=== PATIENT | male | born 1960 | race Caucasian/White ===

== ENCOUNTER 2016-08-02 02:55 | Emergency (ER) | payer OTHER ==
[2016-08-02] MEDS ORDERED: BACITRACIN ZINC OINTMENT 15 GM TP ONE (04:17)
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
[2016-08-02 06:27] VITALS: BP 126/82
== END 2016-08-02 06:25 | disposition home or self-care (01) ==
LOC: ER 02:55
DX: S43.005A Unspecified dislocation of left shoulder joint, initial encounter (principal); S60.222A Contusion of left hand, initial encounter; S60.415A Abrasion of left ring finger, initial encounter; S80.812A Abrasion, left lower leg, initial encounter; V23.4XXA Motorcycle driver injured in collision with car, pick-up truck or van in traffic accident, initial encounter; Y35.893A Legal intervention involving other specified means, suspect injured, initial encounter; M79.642 Pain in left hand; M79.672 Pain in left foot; Z88.7 Allergy status to serum and vaccine
CPT/HCPCS: 99283; 73630; 73130; 73030; J3490

== ENCOUNTER 2017-02-28 05:44 | Emergency (ER) | payer SELFPAY ==
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
[2017-02-28] MEDS ORDERED: FENTANYL CITRATE INJ/PF 100 MCG/2 ML AMPUL IV ONE (06:10)
[2017-02-28] MEDS ORDERED: PROPOFOL INJ 200 MG/20 ML VIAL IV ONE (06:18)
[2017-02-28] MEDS ORDERED: NORMAL SALINE 1000 ML 1,000 ML IV ONE (06:19)
--- NOTE | 2017-02-28 06:23 | ER Document Report ---
ED General - General Chief Complaint: Shoulder Injury Stated Complaint: RIGHT SHOULDER PAIN Time Seen by Provider: 02/28/17 06:18 Mode of Arrival: Medic Notes: Patient is is a 57-year-old male who presents with complaint of falling onto his right shoulder. He has a history of recurrent left shoulder dislocations. His never dislocated his right shoulder. He feels that his right shoulder might be dislocated. No numbness or weakness into the hand. He denies any medical allergies other than tetanus. He denies being on blood thinning medications. He has no other complaints at this time. He denies any other injuries. TRAVEL OUTSIDE OF THE [place] IN LAST 30 DAYS: No - Related Data Allergies/Adverse Reactions: Tetanus Vaccines and Toxoid Allergy (Verified 08/02/16 03:10) Past Medical History - General Information source: Patient - Social History Smoking Status: Unknown if Ever Smoked Frequency of alcohol use: None Drug Abuse: None Family History: None Renal/ Medical History: Denies: Hx Peritoneal Dialysis Review of Systems - Review of Systems Notes: My Normal Review Basic REVIEW OF SYSTEMS: CONSTITUTIONAL : Denies fever, chills, or sweats. Denies recent illness. MUSCULOSKELETAL: Right shoulder pain. SKIN: Denies rash or skin lesions. HEMATOLOGIC : Denies easy bruising or bleeding. NEUROLOGICAL: Denies sensory or motor loss. ALL OTHER SYSTEMS REVIEWED AND NEGATIVE. Physical Exam - Vital signs Vitals: Temp Pulse Resp BP Pulse Ox 98.4 F 72 18 149/91 H 97 02/28/17 06:00 02/28/17 06:00 02/28/17 06:00 02/28/17 06:00 02/28/17 06:00 - Notes Notes: General Appearance: Well nourished, alert, cooperative, no acute distress, moderate obvious discomfort. Vitals: reviewed, See vital signs table. Head: no swelling or tenderness to the head Eyes: PERRL, EOMI, Conjuctiva clear Mouth: No decreasd moisture Throat: No tonsillar inflammation, No airway obstruction, No lymphadenopathy Neck: Supple, no neck tenderness Lungs: No wheezing, No rales, No rhonci, No accessory muscle use, good air exchange bilaterally. Heart: Normal rate, Regular rythm, No murmur, no rub Extremities: strength 5/5 in all extremities, good pulses in all extremities, obvious deformity to right shoulder. With any attempt of range of motion of the right shoulder. No tenderness to elbow wrist or hand., no edema. Skin: warm, dry, appropriate color, no rash Neuro: speech clear, oriented x 3, normal affect, responds appropriately to questions. Distal sensation intact. Course - Re-evaluation Re-evalutation: 02/28/17 07:14 Patient is completely awake and alert. Is answering all my questions properly. I reviewed with him follow-up plan with orthopedist. I informed him to keep the sling on but the still put his shoulder through occasional range of motion to help prevent frozen shoulder syndrome. I encouraged him return to ER immediately if he has any worsening pain, feels like his shoulder is dislocated , or if he has any further concerns. He has no numbness or tingling into his hand. He has good movement in all fingers of his right hand. I asked him again if he felt that he had any other injuries from the fall. Patient again denies any pain anywhere else other than his right shoulder. Patient will be discharged home with a taxi cab. Dictation of this chart was performed using voice recognition software; therefore, there may be some unintended grammatical errors. - Vital Signs Vital signs: Temp Pulse Resp BP Pulse Ox 98.4 F 74 16 149/87 H 98 02/28/17 06:00 02/28/17 06:45 02/28/17 07:05 02/28/17 07:05 02/28/17 07:05 Procedures - Conscious Sedation Conscious sedation Pt with a mild systemic disease.: P2. - ASA Classification. Airway Evaluation: Normal anatomy Mallampati Classification: Class 1 Used during procedure: Suction available, IV access obtained, Pulse ox on pt., manager real estate on pt. Medications administered: Diprivan Reversal agents: None I personally performed/intraservice time: Sedation, Procedure, 30 min or less - Joint Reduction/Fracture Care Right Shoulder Consent obtained: Yes Conscious sedation: Yes Pre-procedure NV exam: Yes Fracture: Closed, Other - shoulder dislocation Manipulation comment: traction and abduction Post-procedure NV exam: Yes Post-reduction x-ray: Joint reduced Reduction attempts: 1 Complications: No Discharge - Discharge Clinical Impression: Shoulder dislocation Qualifiers: Encounter type: initial encounter Laterality: right Qualified Code(s): S43.004A - Unspecified dislocation of right shoulder joint, initial encounter Condition: Good Disposition: HOME, SELF-CARE Instructions: Shoulder Dislocation ([facility]), Sling as Treatment ([facility]) Additional Instructions: Your xray showed a shoulder dislocation and a small fractur to your shoulder. Your shoulder has been put back in place. Please keep your arm in the sling until revaluated by the orthopedic doctor (Dr. Mcdermott). Please occasionally put your shoulder through range of motion to help prevent a frozen shoulder. Please return to the ER if you develop recurrence of disolcation, numbness in your hand , or if you have further concerns. Forms: Return to Work Referrals: OPAL MCDERMOTT MD [ACTIVE STAFF] - Follow up in 3-5 days (call office this morning to make a follow up appointment)
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
--- NOTE | 2017-02-28 07:12 | RADIOLOGY REPORT (SQ) ---
EXAM DESCRIPTION: SHOULDER RIGHT 2 OR MORE VIEWS COMPLETED DATE/TIME: 02/28/2017 6:57 am REASON FOR STUDY: post reduction COMPARISON: None. NUMBER OF VIEWS: Two views. TECHNIQUE: 2images acquired of the right shoulder. LIMITATIONS: As below. FINDINGS: MINERALIZATION: Normal. BONES: Interval reduction of a previous fracture -dislocation of the right glenohumeral joint in aditi omic or near anatomic position. Small residual anterior glenohumeral dislocation/subluxation cannot be excluded. Consider further evaluation with an axillary view. JOINTS: As above. VISUALIZED LUNGS AND RIBS: No pneumothorax. No rib fracture. SOFT TISSUES: No radiopaque foreign body. OTHER: No other significant finding. IMPRESSION: Interval reduction of a previous fracture -dislocation of the right glenohumeral joint i n anatomic or near anatomic position as seen on 2 limited views. Small residual anterior glenohumera l dislocation/subluxation cannot be excluded. Consider further evaluation/surveillance with an axill pauline and scapular Y views and/or CT as warranted. TECHNICAL DOCUMENTATION: JOB ID: [id number] [employer]- All Rights Reserved
[2017-02-28 07:42] VITALS: BP 148/87
== END 2017-02-28 07:41 | disposition home or self-care (01) ==
LOC: ER 05:44
PROC: 0RSJXZZ Reposition Right Shoulder Joint, External Approach (ICD-10-PCS; principal; 2017-02-28)
DX: S43.004A Unspecified dislocation of right shoulder joint, initial encounter (principal); W19.XXXA Unspecified fall, initial encounter; Z88.7 Allergy status to serum and vaccine
CPT/HCPCS: 99283; 99152; 73030; 23650; L3650; J7030; J2704